=== PATIENT | female | born 1960 | race Caucasian/White ===

== ENCOUNTER → 2024-07-06 13:25 | Outpatient (REF) | payer OTHER, SELFPAY | LOC: RAD 13:25 | PROVIDERS: ATTENDING PHYSICIAN Family Medicine; REFERRING PHYSICIAN Internal Medicine Cardiovascular Disease | DX: E78.00 Pure hypercholesterolemia, unspecified (principal) | CPT/HCPCS: 75571 ==

== ENCOUNTER → 2024-07-13 13:10 | Outpatient (REF) | payer OTHER, SELFPAY | LOC: RAD 13:10 | PROVIDERS: ATTENDING PHYSICIAN Family Medicine | DX: N83.201 Unspecified ovarian cyst, right side (principal) | CPT/HCPCS: 76830; 76856 ==

== ENCOUNTER → 2024-07-21 09:50 | Outpatient (REF) | payer OTHER, SELFPAY | LOC: WDC 09:50 | PROVIDERS: ATTENDING PHYSICIAN Family Medicine | DX: Z12.31 Encounter for screening mammogram for malignant neoplasm of breast (principal) | CPT/HCPCS: 77063; 77067 ==

== ENCOUNTER → 2024-07-25 10:17 | Outpatient (REF) | payer OTHER, SELFPAY | LOC: RAD 10:17 | PROVIDERS: ATTENDING PHYSICIAN Physician Assistant | DX: R07.81 Pleurodynia (principal) | CPT/HCPCS: 71101 ==

== ENCOUNTER → 2024-08-06 14:53 | Outpatient (REF) | payer OTHER, SELFPAY | LOC: RAD 14:53 | PROVIDERS: ATTENDING PHYSICIAN Physician Assistant Medical | DX: L29.9 Pruritus, unspecified (principal); R21 Rash and other nonspecific skin eruption | CPT/HCPCS: 71046 ==

== ENCOUNTER 2024-09-30 21:57 | Emergency (ER) | payer OTHER, SELFPAY ==
[2024-09-30 22:00] VITALS: BP 94/80
--- NOTE | 2024-10-01 00:18 | ED.GENMED ---
History of Present Illness
General
Chief Complaint: Musculo-Skeletal Complaint
Source: patient
Exam Limitations: none
Time Seen by Provider: 10/01/24 00:07
Nursing documentation reviewed up to this point in time: agreed with
History of Present Illness
History of Present Illness:
This is a 64-year-old woman with history of right knee meniscal repair October 2022 at [facility]. Today around 3 PM she stepped into a room and missed a small step down landing hard on her right knee with immediate severe pain to her right knee.
She denies fall but believes she twisted her knee with immediate severe pain. She has not taken anything for pain. She has been applying ice. Unable to bear weight.
She denies back pain, denies lower leg nor foot pain, no weakness nor numbness.
She states since that surgery October 2022 she has relocated to this area and her primary care physician is through [facility]. She currently does not follow with an orthopedist.
Past History
Past History
ED Past Medical History: Asthma, Cancer (breast), Hypercholesterolemia, Psychiatric (Depression) and Other (IBS)
ED Past Surgical History: Gynecological (hyster, left breast lumpectomy 1997) and Orthopedic (Right knee meniscal repair October 2022)
Social History
Tobacco: Smoker
Alcohol: Occasional
Personal:
Living: alone
Employment: Retired
Family History
Family History: Other (Noncontributory)
Phy Exam
Physical Exam
Physical Exam:
GENERAL: 64-year-old woman appears her stated age, awake and alert, pleasant, appears in mild distress, sitting in wheelchair, right leg elevated on a chair, ice lying over top of right knee
EYE: anicteric
NECK: Nontender
ENT: Oral mucosa is moist
LUNGS: No respiratory distress
ABDOMEN: Nontender
NEUROLOGICAL: Alert and oriented x3, no focal neuro deficits.
SKIN: Warm and dry, normal color, skin intact. No rash.
MUSCULOSKELETAL: No C/C/E. Moderate tenderness to right anterior, superior and medial knee. There is mild joint effusion with mild to moderate soft tissue swelling superiorly. Right knee is held preferentially extended with moderately restricted
range of motion related to pain. No gross deformity. No crepitus. No tenderness to the lower leg nor thigh. Peripheral pulses are full and equal bilaterally. Distal sensation and strength intact.
PSYCH: Normal and appropriate interaction.
Course
Orders/Labs/Results
Orders:
Orders
09/30/24 22:02
CR Knee- Right 4 Or More View* Urgent
Comment:
Reason For Exam: right knee pain
10/01/24 00:18
Knee Immobilizer Right-Treatme ONCE
Ketorolac [Toradol] 60 mg IM NOW STA
Vital Signs
Initial and Last Documented VS:
Initial Vital Signs
Temp Pulse Resp BP Pulse Ox
99.1 F 89 20 94/80 99
09/30/24 22:00 09/30/24 22:00 09/30/24 22:00 09/30/24 22:00 09/30/24 22:00
Last Documented Vital Signs
Temp Pulse Resp BP Pulse Ox
99.1 F 89 20 94/80 99
09/30/24 22:00 09/30/24 22:00 09/30/24 22:00 09/30/24 22:00 09/30/24 22:00
MDM/Problems Addressed
Differential Diagnosis Includes:
Concern for acute right knee strain, concern for internal derangement.
Right knee x-ray shows no evidence of fracture. There is note of mild soft tissue swelling superior to the patella.
Will medicate for pain with Toradol and patient will be placed in a knee immobilizer.
Recommend nonweightbearing and she has crutches at home.
Recommend she continue with ice, elevation over the next 1 to 2 days then transition to heat.
A prescription for diclofenac has been provided as well as a prescription for a few hydrocodone for as needed moderate to severe pain.
Will refer to orthopedics for follow-up.
Chronic conditions affecting care: Other (Previous meniscal repair right knee)
*Radiology
Radiology exam reviewed: preliminary read by ED provider (Right knee x-ray shows no evidence of fracture. No dislocation. There is mild soft tissue swelling superior to to the patella)
*Pulse Oximetry
Patient hypoxic: no
*Critical Care Note
Total Time (30-74mins, 75-104mins- exclusive of procedures): Not Applicable
ED Attending Note
-
Portions of this chart may have been created with voice recognition software.� Occasional wrong word or��sound alike� substitutions may have occurred due to the inherent limitations of voice recognition software.
Discharge Plan
Departure
Patient Disposition: Home (Routine Discharge)
Date of Disposition: 10/01/24
Time of Disposition: 00:19
Patient with high blood pressure during this ER visit?: No
Condition: Good
Discharge Problem:
Right knee sprain
Instructions: Knee Immobilizer (DC), Knee Sprain (DC)
Prescriptions:
New
diclofenac sodium 75 mg tablet,delayed release (DR/EC)
75 mg PO BID PRN (Reason: pain) Qty: 30 0RF
hydrocodone-acetaminophen 5-300 mg tablet
1 tab PO Q8H PRN (Reason: moderate pain) Qty: 8 0RF
No Action
citalopram 40 MG tablet
40 mg PO HS
Referrals:
Baljinder Prakash MD [Active] - Call in 1-3 days for appt
UNKNOWN - PT DOES,NOT KNOW [Family Provider] -
Interventions
Interventions:
*Risk Screen - Suicide Last Done: 09/30/24 23:43
*General Assessment Last Done: 09/30/24 22:00
*Neglect/Abuse Screening Last Done: 09/30/24 23:43
ED-Musculoskeletal Assessment Last Done: 09/30/24 23:43
Discharge Date and Time
Print Language: FRENCH
[2024-10-01] MEDS: TORADOL 60 MG IM (00:37)
[2024-10-01 00:45] VITALS: BP 107/69
== END 2024-10-01 00:48 | disposition home or self-care (01) ==
LOC: EMR 21:57
PROVIDERS: EMERGENCY PHYSICIAN Emergency Medicine
DX: S83.91XA Sprain of unspecified site of right knee, initial encounter (principal); X50.1XXA Overexertion from prolonged static or awkward postures, initial encounter; J45.909 Unspecified asthma, uncomplicated; E78.00 Pure hypercholesterolemia, unspecified; F17.200 Nicotine dependence, unspecified, uncomplicated
CPT/HCPCS: 29505; 96372; 99284; 73564